=== PATIENT | female | born 1945 | race Caucasian/White ===

== ENCOUNTER 2020-12-17 06:54 | Day surgery (SDC) | payer OTHER, SELFPAY ==
[~2020-12-17] VITALS: Ht 165.1 cm; Wt 61.2 kg
[2020-12-17] MEDS ORDERED: MIDAZOLAM 5 MG/5 ML VIAL ONE (08:17)
[2020-12-17] MEDS ORDERED: LIDOCAINE 2% 100 MG/5 ML UJET TP ONE ×2 (08:17→12:05)
[2020-12-17] MEDS ORDERED: fentaNYL citrate 0.05 MG/ML VIAL ONE (08:17)
[2020-12-17] MEDS ORDERED: fentaNYL citrate 0.05 MG/ML VIAL IVP ONE (12:05)
== END 2020-12-17 09:51 | disposition home or self-care (01) ==
LOC: MOR 06:54 → MFCC 06:56 → MOR 09:51
PROVIDERS: ATTEND Internal Medicine Gastroenterology
DX: K62.5 Hemorrhage of anus and rectum (principal); D12.8 Benign neoplasm of rectum; K64.8 Other hemorrhoids
CPT/HCPCS: 45385; 87426; J3010; J2250